=== PATIENT | male | born 1965 | race Caucasian/White ===

== ENCOUNTER 2018-07-05 21:19 | Emergency (ER) | payer BC, OTHER ==
[2018-07-05 21:26] VITALS: BP 132/79
--- NOTE | 2018-07-05 21:33 | UC ---
Truncal Trauma HPI - HPI Summary HPI Summary: Just before 9pm, was doing wood working when a board bounce back, hitting his upper abdomen with force. Pushed him backward but did not fall. He has not had vomiting, difficulty breathing, progressive pain, but feels sore across the upper abdomen and lower ribs. No analgesics used. Hx of diabetes and reflux, bipolar disorder. - History Of Current Complaint Stated Complaint: RT SIDE NUMBNESS, ABD TRAUMA Time Seen by Provider: 07/05/18 21:24 Hx Obtained From: Patient Onset/Duration: Sudden Onset, Lasting Hours - 1 Severity Initially: Moderate Severity Currently: Moderate Mechanism Of Injury: Direct Blow Aggravating Factor(s): Movement, Deep Breathing Alleviating factor(s): Nothing - no analgesics taken Associated Signs And Symptoms: Positive: Abdominal Pain - Allergies/Home Medications Allergies/Adverse Reactions: Allergies Allergy/AdvReac Type Severity Reaction Status Date / Time diphenhydramine Allergy Rash Verified 07/05/18 21:29 Home Medications: Home Medications Famotidine TAB* [Pepcid 20 MG TAB*] 20 mg PO DAILY 07/05/18 [History Confirmed 07/05/18] Lely Carbonate TAB* 300 mg PO BID 07/05/18 [History Confirmed 07/05/18] Mirtazapine TAB* [Remeron TAB*] 30 mg PO BEDTIME 07/05/18 [History Confirmed ] Nortriptyline CAP* [Pamelor CAP*] 10 mg PO BEDTIME 07/05/18 [History Confirmed 07/05/18] metFORMIN* [Glucophage 500 MG TAB *] 500 mg PO BID 07/05/18 [History Confirmed 07/05/18] PMH/Surg Hx/FS Hx/Imm Hx Endocrine History: Diabetes GI/ History: Gastroesophageal Reflux Psychological History: Bipolar Disorder - Surgical History Surgical History: None - Social History Alcohol Use: None Substance Use Type: None Smoking Status (MU): Former Smoker Review of Systems All Other Systems Reviewed And Are Negative: Yes Constitutional: Positive: Negative Skin: Positive: Negative Eyes: Negative: Blurred Vision ENT: Positive: Negative Respiratory: Negative: Shortness Of Breath, Cough Cardiovascular: Negative: Chest Pain Genitourinary: Positive: Negative - unable to void Neurovascular: Positive: Other - right arm has a diffuse numb sensation Musculoskeletal: Positive: Myalgia Neurological: Negative: Headache, Weakness Psychological: Positive: Depressed Physical Exam Triage Information Reviewed: Yes Appearance: No Pain Distress, Obese, Other: - Alert, answers appropriately, walks with ease at normal pace. Vital Signs Reviewed: Yes Eye Exam: Other - WILLOW Eyes: Positive: Conjunctiva Clear ENT: Positive: Pharynx normal, TMs normal Neck: Positive: Supple, Nontender, No Lymphadenopathy Respiratory Exam: Other - mild tenderness along lower rib margina right and left. No tenderness in sternum Respiratory: Positive: Lungs clear, Normal breath sounds. Negative: No accessory muscle use, Respiratory distress, Decreased breath sounds, Rhonchi, Wheezing Cardiovascular: Positive: RRR, No Murmur Abdominal Exam: Other - abdomen soft, tenderness across both upper quadrants to palpation, no guarding or rebound, no bruising or hematoma visible. Abdomen Description: Positive: No Organomegaly, Soft. Negative: CVA Tenderness (R), CVA Tenderness (L), Guarding, Hernia @, Splenomegaly Bowel Sounds: Positive: Present Musculoskeletal: Positive: Strength Intact Neurological Exam: Other - No pronator drift. Full rom in right UE Can heel and toe walk Neurological: Positive: Alert, Muscle Tone Normal Psychological Exam: Normal - mildly flat affect, but appropriate and interactive. Skin Exam: Normal, Other - no bruising. Truncal Trauma Course/Dx - Course Course Of Treatment: monitor for progressive symptoms, and if you have increasing pain, nausea, vomiting, any blood in your urine, to go to the ER - Differential Dx/Diagnosis Differential Diagnosis/HQI/PQRI: Abdominal Wall Contusion, Chest Wall Contusion , Liver Trauma, Spleen Trauma Provider Diagnosis: Abdominal wall contusion Discharge - Sign-Out/Discharge Documenting (check all that apply): Patient Departure All imaging exams completed and their final reports reviewed: No Studies - Discharge Plan Condition: Stable Disposition: HOME Patient Education Materials: Contusion in Adults (ED) Referrals: No Primary Care Phys,NOPCP [Medical Doctor] - Additional Instructions: For control of pain, you can use moist heat on the upper abdomen, and use acetaminphen 1000mg as needed every 8 hours for pain. Please go to the emergency room if you have increasing nausea, any vomiting, difficulty breathing, worsening abdominal pain. - Billing Disposition and Condition Condition: STABLE Disposition: Home
== END 2018-07-05 22:04 | disposition home or self-care (01) ==
LOC: UCCORT 21:19
DX: S30.1XXA Contusion of abdominal wall, initial encounter (principal); R20.0 Anesthesia of skin; K21.9 Gastro-esophageal reflux disease without esophagitis; E11.9 Type 2 diabetes mellitus without complications; M79.10 Myalgia, unspecified site; Z79.84 Long term (current) use of oral hypoglycemic drugs; Z79.899 Other long term (current) drug therapy; F31.9 Bipolar disorder, unspecified; Z87.891 Personal history of nicotine dependence; W22.8XXA Striking against or struck by other objects, initial encounter; Y92.9 Unspecified place or not applicable
CPT/HCPCS: 99211; G0463